=== PATIENT | male | born 1980 | race Caucasian/White ===

== ENCOUNTER 2016-11-09 15:05 | Emergency (ER) | payer OTHER ==
--- NOTE | 2016-11-09 15:18 | PDOC ---
Attending Attestation - Resident Resident Name: EllsworthMoise - ED Attending Attestation I have performed the following: I have examined & evaluated the patient, The case was reviewed & discussed with the resident, I agree w/resident's findings & plan, Exceptions are as noted - HPI HPI: 11/09/16 15:16 The patient is a 36 year old male with a significant past medical history of Melina Danlos syndrome who presents with left anterior shoulder pain after he fell on it. He denies distal weakness or paresthesias. He denies other pain or injuries. - Physicial Exam PE: 11/09/16 15:17 There tenderness at the left acromioclavicular joint Pain increases with range of motion No mid or proximal clavicular tenderness 11/09/16 15:23 - Medical Decision Making 11/09/16 15:24 I suspect AC separation Will obtain plain XR 11/09/16 15:48 X-ray emergency Department interpretation: No evidence of fracture No evidence of dislocation No obvious evidence of before meals separation Despite the normal x-ray, I am concerned for possible AC separation Will refer to orthopedics for further evaluation and possible MRI Clinical impression: Suspected AC joint injury or separation I discussed the physical exam findings, ancillary test results and final diagnoses with the patient. I answered all of the patient's questions. The patient was satisfied with the care received and felt comfortable with the discharge plan and treatment plan. The patient will call their primary care physician within 24 hours to arrange follow-up and will return to the Emergency Department with any new, persistent or worsening symptoms. He will call tomorrow afternoon for the final radiology reading 11/09/16 17:49 Final radiology reading remains pending
[2016-11-09 15:19] VITALS: BP 117/98; PULSE 85; TEMP 97.9; BMI 28.3
[2016-11-09] MEDS ORDERED: IBUPROFEN 600 MG TABLET (FP) PO ONE ×2 (15:23→15:25)
--- NOTE | 2016-11-09 15:29 | PDOC ---
History of Present Illness - General Chief Complaint: Injury Stated Complaint: LEFT SHOULDER INJURY Time Seen by Provider: 11/09/16 15:08 History Source: Patient Exam Limitations: No Limitations - History of Present Illness Initial Comments: 36 yo M with h/o Melina-Danlos syndrome and L shoulder dislocation in childhood presented to the ED with shoulder injury. He stated he's at a [employer] game and fell onto his left shoulder. He said his shoulder now is droopy and is painful to move. The pain is located above clavicle, 6/10, intermittent, stabbing like, worse with motion. Denies fever, chills, other joint involvement , chest pain, sob. Past History - Past Medical History Allergies/Adverse Reactions: Allergies Allergy/AdvReac Type Severity Reaction Status Date / Time amoxicillin Allergy INFANT Verified 11/09/16 15:08 Home Medications: Ambulatory Orders Omeprazole 20 mg PO BID 05/30/16 Modafinil [Provigil -] 400 mg PO DAILY 06/05/16 Sodium Oxybate [Xyrem] 4.5 grams PO ASDIR 06/05/16 Cholecalciferol (Vitamin D3) [Vitamin D3] 5,000 unit PO DAILY 11/09/16 Levocetirizine Dihydrochloride [Xyzal] 5 mg PO DAILY 11/09/16 Naproxen [Naprosyn] 500 mg PO BID PRN #20 tablet 11/09/16 Anemia: No Asthma: No Cancer: No Cardiac Disorders: No CVA: No COPD: No CHF: No Dementia: No Diabetes: No GI Disorders: Yes (GERD-STATES HAD GASTRITIS AND ULCER ON PAST EGD) Disorders: No HTN: No Hypercholesterolemia: Yes Liver Disease: No Seizures: No Thyroid Disease: No Other medical history: EHLER'S DANLOS SYNDROME - Surgical History Abdominal Surgery: No Appendectomy: Yes (1997) Cardiac Surgery: No Cholecystectomy: No Lung Surgery: No Neurologic Surgery: No Orthopedic Surgery: No - Psycho/Social/Smoking Cessation Hx Anxiety: No Suicidal Ideation: No Smoking History: Never smoked Have you smoked in the past 12 months: No Information on smoking cessation initiated: No Hx Alcohol Use: (rare) Drug/Substance Use Hx: No Substance Use Type: None Hx Substance Use Treatment: No Review of Systems - Review of Systems Able to Perform ROS?: Yes Is the patient limited [place] proficient: No Constitutional: No: Chills, Fever Respiratory: No: Cough, Shortness of Breath Cardiac (ROS): No: Chest Pain Musculoskeletal: Yes: Joint Pain *Physical Exam - Vital Signs Last Vital Signs Temp Pulse Resp BP Pulse Ox 97.9 F 85 18 117/98 98 11/09/16 15:05 11/09/16 15:05 11/09/16 15:05 11/09/16 15:05 11/09/16 15:05 - Physical Exam General Appearance: No: Apparent Distress Respiratory/Chest: positive: Lungs Clear, Normal Breath Sounds Cardiovascular: positive: Regular Rhythm, Regular Rate, S1, S2. negative: Murmur Gastrointestinal/Abdominal: positive: Normal Bowel Sounds. negative: Distended , Guarding, Rebound, Tenderness Extremity: positive: Other (local tenderness in R shoulder over the clavicle). negative: Normal Range of Motion Neurologic: positive: Fully Oriented, Alert Medical Decision Making - Medical Decision Making 11/09/16 15:30 Will obtain X-ray of shoulder. 11/09/16 16:00 X-ray of shoulder does not show any apparent fracture or dislocation. Will instruct the patient to follow up with ortho next friday. *DC/Admit/Observation/Transfer Diagnosis at time of Disposition: Shoulder injury Qualifiers: Encounter type: initial encounter Laterality: left Qualified Code(s): S49.92XA - Unspecified injury of left shoulder and upper arm, initial encounter - Discharge Dispostion Disposition: HOME Condition at time of disposition: Stable Admit: No - Prescriptions Prescriptions: Naproxen [Naprosyn] 500 mg PO BID PRN #20 tablet PRN Reason: Pain - Referrals Referrals: Edwin Gonzalez MD [Staff Physician] - - Patient Instructions Printed Discharge Instructions: How to Use a Sling, DI for Shoulder Sprain Additional Instructions: Please make an appointment to see Dr. Gonzalez and take naproxen for pain and anti -inflammation.
== END 2016-11-09 16:11 | disposition home or self-care (01) ==
LOC: FER 15:05
DX: S49.92XA Unspecified injury of left shoulder and upper arm, initial encounter (principal); W18.30XA Fall on same level, unspecified, initial encounter; Y93.9 Activity, unspecified; Y92.9 Unspecified place or not applicable; Q79.6 Ehlers-Danlos syndromes; K21.9 Gastro-esophageal reflux disease without esophagitis; E78.00 Pure hypercholesterolemia, unspecified
CPT/HCPCS: 73030-TC-LT; 99283-25

== ENCOUNTER 2019-09-23 12:38 | Day surgery (SDC) | payer OTHER ==
[2019-09-22 14:00] VITALS: BMI 28.3
[2019-09-23] MEDS ORDERED: oxyCODONE HCL 5 MG TABLET PO PRN ×3 (12:42→18:08)
[2019-09-23] MEDS ORDERED: ONDANSETRON 4 MG/2 ML VIAL IVPUSH PRN ×2 (12:42→18:08)
[2019-09-23] MEDS ORDERED: LACTATED RINGERS SOLUTION 1,000 ML IV SCH ×2 (12:45→18:15)
[2019-09-23] MEDS ORDERED: BUPIVACAINE HCL 0.25% 125 MG/50 ML VIAL ONE (16:05)
[2019-09-23] MEDS ORDERED: MIDAZOLAM HCL 2 MG/2 ML SINGLE DOSE VIAL ONE ×2 (16:36→16:59)
[2019-09-23] MEDS ORDERED: fentaNYL CITRATE 250 MCG/5 ML VIAL ONE (16:36)
[2019-09-23] MEDS ORDERED: DEXAMETHASONE SOD PHOSPHATE 4 MG/1 ML VIAL ONE (16:51)
[2019-09-23] MEDS ORDERED: ONDANSETRON 4 MG/2 ML VIAL ONE (16:51)
[2019-09-23] MEDS ORDERED: ceFAZolin SODIUM 1 GM VIAL ONE (16:51)
[2019-09-23] MEDS ORDERED: KETOROLAC TROMETHAMINE 30 MG/1 ML VIAL ONE (16:51)
[2019-09-23] MEDS ORDERED: BUPIVACAINE HCL/PF 0.25% (2.5MG/ML) 10 ML VIAL IJ ONE ×2 (17:39)
[2019-09-23] MEDS ORDERED: ACETAMINOPHEN INJECTION 100 ML IVPB ONE (18:03)
[2019-09-23] MEDS ORDERED: ACETAMINOPHEN 1000 MG/100 ML VIAL (NON FORMULARY) IVPB ONE (18:09)
[2019-09-23] MEDS ORDERED: oxyCODONE HCL 5 MG TABLET ONE (18:47)
[2019-09-23 18:52] VITALS: TEMP 98.3
[2019-09-23 19:36] VITALS: BP 137/78; PULSE 68
--- NOTE | 2019-09-23 22:34 | OP ---
DATE OF OPERATION: 09/23/2019 PREOPERATIVE DIAGNOSIS: Right lateral epicondylitis. POSTOPERATIVE DIAGNOSIS: Right lateral epicondylitis. PROCEDURE: Right elbow open tenotomy and repair. SURGEON: Ace Hagen MD. BOLT MAN: PA. Maria Teresa, whose skillful assistance was necessary for the safe and timely performance of this procedure. Ms. Rowland was able to provide positioning, retraction, assistance in tending debridement and insertion of orthopedic hardware. ANESTHESIA: General. POSTOPERATIVE CONDITION: Stable. COMPLICATIONS: None. 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 He failed to improve with multiple conservative measures. Treatment options discussed including nonoperative versus operative management were reviewed. Operative risks were reviewed including bleeding, infection, neurovascular injury, need for further surgery, postoperative pain and stiffness, persistent pain and tendinopathy. We discussed that the surgery is being done to create a more favorable environment for healing. That being said, the actual healing has to occur due to his body's own response. I reviewed medical risks such as heart attack, stroke, DVT, PE, and . I reviewed the postoperative rehabilitation protocol. I addressed all the patient's questions and concerns. They voiced understanding and elected to proceed. DESCRIPTION OF PROCEDURE: The patient was brought to the operating room where general anesthesia was administered. The right upper extremity was prepped and draped in the usual sterile fashion. A preoperative dose of antibiotics was given, and the usual timeout procedure was performed. The incision was now planned out in a curvilinear fashion along Freddy's line over the lateral epicondyle. This was carried down through subcutaneous tissue. Blunt spreading was used to expose the fascia over the lateral epicondyle. Lateral epicondyle was now identified, and an incision was planned out along its fibers in the midline, careful to stay far anterior than the equator. The skin glue was then used to elevate the anterior portion of the ECRT off the bone. Tendon quality was consistent with tendinosis. Utilizing a rongeur, curet, the unhealthy tissue was debrided. The curet was used to roughen the surface of the bone as well. A 1.9 anchor was then inserted in the mid portion of the lateral epicondyle. Two additional drill holes were placed to allow for venting of bone marrow and to aid in healing. The sutures were then passed with a free needle in fashion not re-secure down the ECRL and remaining ECRT tissue. Wound was then irrigated. Subcutaneous tissue was approximated with 2-0 Vicryl. The skin was closed using 4-0 Monocryl. Dermabond was placed. Sterile dressings were placed. The patient was transferred to the recovery room in stable condition. Extensor carpi radialis longus Milly [id number]
== END 2019-09-23 19:35 | disposition home or self-care (01) ==
LOC: FASU 12:38
PROVIDERS: ATTEND Orthopaedic Surgery Sports Medicine
PROC: 0JBD0ZZ Excision of Right Upper Arm Subcutaneous Tissue and Fascia, Open Approach (ICD-10-PCS; 2019-09-23)
PROC: 0L830ZZ Division of Right Upper Arm Tendon, Open Approach (ICD-10-PCS; principal; 2019-09-23 16:41)
DX: M77.11 Lateral epicondylitis, right elbow (principal)
CPT/HCPCS: J0131